=== PATIENT | male | born 1955 | race Caucasian/White ===

== ENCOUNTER 2016-12-02 10:46 | Observation (INO) | payer BC ==
[2016-12-02] VITALS (7 sets, daily range): BP systolic 146–168; BP diastolic 84–107; PULSE 82–114; RESP 16–20; TEMP 97.7–98.7; O2SAT 92–97
[~2016-12-02 10:46] MED LIST: TAMS0.4C67 PO
[2016-12-02] MEDS ORDERED: DULO1CAP PO (11:07)
[2016-12-02] MEDS ORDERED: TAMS0.4C4 PO (11:07)
[2016-12-02] MEDS ORDERED: SODIUM CHLORIDE 0.9% FLUSH 5 ML FLUSH IVF PRN (11:15)
--- NOTE | 2016-12-02 11:18 | PD ---
HPI Chief Complaint: Altered Mental Status Time Seen by Provider: 11:13 Travel History International Travel<30 days: No Contact w/Intl Traveler<30days: No History of Present Illness HPI 61 year old male presents to the emergency department with family for evaluation of progressive confusion, lightheadedness, unsteady gait since a concussion on July. Daughter is at bedside who the family consumer scientist. She states that since his concussion and July, he has had progressive decline. She states that over the 2 weeks, has worsened. On , he disappeared for 9 hours. She states that he has never done this before. She states he is following constantly. He fell this morning. The patient's family members also concerned of possible increasing alcohol intake. His daughter is concerned of hydrocephalus. The patient has a history of depression and BPH. He takes Duloxetine and tamsulosin. He reports sinus pressure, denies headache. No visual changes. Denies any neck pain or back pain. He denies chest pain or shortness breath. No abdominal pain. No vomiting. The patient does not know that today is New Day. He is aware that he is at the hospital and is aware of who the president is. The patient will not say where he went on and was confused when I ask him. He does have abrasion to the left lower leg. His tetanus immunization is up-to-date according to patient and family. [facility] Past Medical History Diminished Hearing: No Genitourinary: Yes Past Surgical History Other Surgery: Yes (EPIDURAL FOR BACK PAIN,TRIGGER FINGER SURGERY) Social History Alcohol Use: Yes Tobacco Use: No Substance Use: No Allergies-Medications (Allergen,Severity, Reaction): Coded Allergies: No Known Allergies (Unverified , 07/06/16) Reported Meds & Prescriptions Reported Meds & Active Scripts Active Reported Tamsulosin (Tamsulosin HCl) 0.4 Mg Cap 0.4 Mg PO HS Duloxetine DR (Duloxetine HCl) 20 Mg Capdr 80 Mg PO DAILY Review of Systems Except as stated in HPI: all other systems reviewed are Neg Physical Exam Narrative GENERAL: Well-developed well-nourished male patient, afebrile. Patient does have smell of alcohol on his breath. SKIN: Warm and dry. Abrasion noted to left lower leg. HEAD: Normocephalic. Atraumatic. ENT: Mucosa pink and moist. No erythema or exudates. No uvular edema. No uvular , palatal, or tonsillar deviation. Airway patent. Nasal turbinates appear normal without nasal blood, purulent drainage or septal hematoma. Bilateral tympanic membranes are clear without erythema or perforation. EYES: No scleral icterus. No injection or drainage. NECK: Supple, trachea midline. No JVD or lymphadenopathy. CARDIOVASCULAR: Regular rate and rhythm without murmurs, gallops, or rubs. RESPIRATORY: Breath sounds equal bilaterally. No accessory muscle use. Lungs sounds are clear to auscultation. GASTROINTESTINAL: Abdomen soft, non-tender, nondistended. MUSCULOSKELETAL: No cyanosis, or edema. Bilateral upper and lower extremity strength 5/5. All extremities are neurovascularly intact. BACK: Nontender without obvious deformity. No CVA tenderness. NEUROLOGICAL: Awake and alert. Cranial nerves II through XII intact. Motor and sensory grossly within normal limits. Five out of 5 muscle strength in all muscle groups. Normal speech. Finger to nose is normal bilaterally. Heel to barroso is normal bilaterally. Data Data Last Documented VS Vital Signs Date Time Temp Pulse Resp B/P Pulse Ox O2 Delivery O2 Flow Rate FiO2 12/02/16 11:25 97 Nasal Cannula 2 12/02/16 10:48 97.7 88 16 159/104 Orders Electrocardiogram (12/02/16 11:11) Alcohol (Ethanol) (12/02/16 11:11) Complete Blood Count With Diff (12/02/16 11:11) Comprehensive Metabolic Panel (12/02/16 11:11) Creatine Kinase (Cpk) (12/02/16 11:11) Drug Screen, Random Urine (12/02/16 11:11) Troponin I (12/02/16 11:11) Urinalysis - C+S If Indicated (12/02/16 11:11) Chest, Single Ap (12/02/16 11:11) Ct Brain W/O Iv Contrast(Rout) (12/02/16 11:11) Blood Glucose (12/02/16 11:11) Ecg Monitoring (12/02/16 11:11) Iv Access Insert/Monitor (12/02/16 11:11) Oximetry (12/02/16 11:11) Sodium Chloride 0.9% Flush (Ns Flush) (12/02/16 11:15) Magnesium (Mg) (12/02/16 11:18) Ammonia (12/02/16 12:20) Admit Order (Ed Use Only) (12/02/16 13:24) Labs Laboratory Tests Test 12/02/16 12/02/16 11:27 12:31 White Blood Count 5.3 TH/MM3 Red Blood Count 5.14 MIL/MM3 Hemoglobin 15.8 GM/DL Hematocrit 46.7 % Mean Corpuscular Volume 90.9 FL Mean Corpuscular Hemoglobin 30.7 PG Mean Corpuscular Hemoglobin 33.8 % Concent Red Cell Distribution Width 14.1 % Platelet Count 182 TH/MM3 Mean Platelet Volume 8.9 FL Neutrophils (%) (Auto) 65.2 % Lymphocytes (%) (Auto) 22.4 % Monocytes (%) (Auto) 10.3 % Eosinophils (%) (Auto) 1.0 % Basophils (%) (Auto) 1.1 % Neutrophils # (Auto) 3.5 TH/MM3 Lymphocytes # (Auto) 1.2 TH/MM3 Monocytes # (Auto) 0.5 TH/MM3 Eosinophils # (Auto) 0.1 TH/MM3 Basophils # (Auto) 0.1 TH/MM3 CBC Comment DIFF FINAL Differential Comment Sodium Level 142 MEQ/L Potassium Level 4.2 MEQ/L Chloride Level 106 MEQ/L Carbon Dioxide Level 27.8 MEQ/L Anion Gap 8 MEQ/L Blood Urea Nitrogen 15 MG/DL Creatinine 1.00 MG/DL Estimat Glomerular Filtration 76 ML/MIN Rate Random Glucose 118 MG/DL Calcium Level 8.0 MG/DL Magnesium Level 2.2 MG/DL Total Bilirubin 0.3 MG/DL Aspartate Amino Transf 41 U/L (AST/SGOT) Alanine Aminotransferase 40 U/L (ALT/SGPT) Alkaline Phosphatase 96 U/L Total Creatine Kinase 308 U/L Troponin I LESS THAN 0.02 NG/ML Total Protein 7.2 GM/DL Albumin 3.4 GM/DL Ethyl Alcohol Level 312 MG/DL Ammonia 35 MCMOL/L [facility] Medical Decision Making Medical Screen Exam Complete: Yes Emergency Medical Condition: Yes Medical Record Reviewed: Yes Interpretation(s) Ct brain - CONCLUSION: No acute disease. Chest x-ray - CONCLUSION: Left basilar atelectasis or airspace disease. Differential Diagnosis Intracranial abnormality versus hydrocephalus versus CVA versus TIA versus electrolyte abnormality versus alcohol intoxication versus ACS Narrative Course 61-year-old male presents to the emergency department with his family for evaluation of progressive confusion, unsteady gait since July, but worsening over the past 2 weeks. EKG is ordered and pending. CBC, CMP, CK, troponin, magnesium, ammonia, alcohol level, urine drug screen, UA are ordered and pending. Chest x-ray and CT of the brain ordered and pending. EKG shows sinus rhythm, heart rate 81, no acute ST changes. CBC shows no acute abnormalities. CMP shows slightly elevated AST of 41, no other acute abnormalities. CK is 308. Troponin is less than 0.02. Magnesium is 2.2. Alcohol level is 312. Ammonia is slightly elevated at 35. CT of the brain shows no acute disease. Chest x-ray shows left basilar atelectasis or airspace disease. [facility] is paged for admission. Dr. Krause accepted admission. Diagnosis Primary Impression: Ataxia Additional Impressions: Unstable gait Alcohol abuse Admitting Information Admitting Physician Requests: Lou Smith Dec 02, 2016 11:18
[2016-12-02 11:46] LABS: AUTOMATED NEUTROPHIL # 3.5 TH/MM3 (1.8-7.7); BASOPHIL # 0.1 TH/MM3 (0-0.2); BASOPHIL % 1.1 % (0.0-2.0); EOSINOPHIL # 0.1 TH/MM3 (0-0.4); HEMATOCRIT 46.7 % (39.0-51.0); HEMO FLAGS DIFF FINAL; LYMPH % 22.4 % (9.0-44.0); LYMPHOCYTE # 1.2 TH/MM3 (1.0-4.8); MEAN CELL VOLUME 90.9 FL (80.0-100.0); MEAN CORPUSCULAR HEMOGLOBIN 30.7 PG (27.0-34.0); MEAN CORPUSCULAR HGB CONC 33.8 % (32.0-36.0); MONO % 10.3 % (0.0-8.0); NEUT % 65.2 % (16.0-70.0); PLATELET COUNT 182 TH/MM3 (150-450); RED BLOOD COUNT 5.14 MIL/MM3 (4.50-5.90); RED CELL DISTRIBUTION WIDTH 14.1 % (11.6-17.2); WHITE BLOOD COUNT 5.3 TH/MM3 (4.0-11.0)
[2016-12-02 12:01] LABS: ANION GAP 8 MEQ/L (5-15); AST (GOT) 41 U/L (15-37); BICARBONATE 27.8 MEQ/L (21.0-32.0); BLOOD UREA NITROGEN 15 MG/DL (7-18); CHLORIDE 106 MEQ/L (98-107); GLOMERULAR FILTRATION RATE 76 ML/MIN (>89); POTASSIUM 4.2 MEQ/L (3.5-5.1); SODIUM (NA) 142 MEQ/L (136-145)
[2016-12-02 12:07] LABS: ALKALINE PHOSPHATASE 96 U/L (45-117); ALT (GPT) 40 U/L (12-78); CREATINE KINASE 308 U/L (39-308); TOTAL BILIRUBIN ADULT 0.3 MG/DL (0.2-1.0)
--- NOTE | 2016-12-02 12:11 | RADRPT ---
EXAM DATE/TIME: 12/02/2016 11:55 [facility] COMPARISON: CT BRAIN W/O CONTRAST, June 30, 2016, 23:07. INDICATIONS : Altered mental status. RADIATION DOSE: 38.93 CTDIvol (mGy) MEDICAL HISTORY : Non-responsive. SURGICAL HISTORY : Non-responsive. ENCOUNTER: Initial ACUITY: 1 day PAIN SCALE: Non-responsive LOCATION: cranial TECHNIQUE: Multiple contiguous axial images were obtained of the head. Using automated exposure control and adj ustment of the mA and/or kV according to patient size, radiation dose was kept as low as reasonably a chievable to obtain optimal diagnostic quality images. FINDINGS: CEREBRUM: Tiny lacunar infarcts in the bilateral basal ganglia again seen. POSTERIOR FOSSA: The cerebellum and brainstem are intact. The 4th ventricle is midline. The cerebellopontine angle i s unremarkable. EXTRACRANIAL: The visualized portion of the orbits is intact. SKULL: The calvaria is intact. No evidence of skull fracture. CONCLUSION: No acute disease. Oskar Bazan MD on December 02, 2016 at 12:08 Board Certified Radiologist. This report was verified electronically.
--- NOTE | 2016-12-02 12:32 | PD ---
Data Data Last Documented VS Vital Signs Date Time Temp Pulse Resp B/P Pulse Ox O2 Delivery O2 Flow Rate FiO2 12/02/16 13:28 86 18 153/90 97 Nasal Cannula 2 12/02/16 10:48 97.7 Orders Electrocardiogram (12/02/16 11:11) Alcohol (Ethanol) (12/02/16 11:11) Complete Blood Count With Diff (12/02/16 11:11) Comprehensive Metabolic Panel (12/02/16 11:11) Creatine Kinase (Cpk) (12/02/16 11:11) Drug Screen, Random Urine (12/02/16 11:11) Troponin I (12/02/16 11:11) Urinalysis - C+S If Indicated (12/02/16 11:11) Chest, Single Ap (12/02/16 11:11) Ct Brain W/O Iv Contrast(Rout) (12/02/16 11:11) Blood Glucose (12/02/16 11:11) Ecg Monitoring (12/02/16 11:11) Iv Access Insert/Monitor (12/02/16 11:11) Oximetry (12/02/16 11:11) Sodium Chloride 0.9% Flush (Ns Flush) (12/02/16 11:15) Magnesium (Mg) (12/02/16 11:18) Ammonia (12/02/16 12:20) Admit Order (Ed Use Only) (12/02/16 13:24) Labs Laboratory Tests Test 12/02/16 12/02/16 11:27 12:31 White Blood Count 5.3 TH/MM3 Red Blood Count 5.14 MIL/MM3 Hemoglobin 15.8 GM/DL Hematocrit 46.7 % Mean Corpuscular Volume 90.9 FL Mean Corpuscular Hemoglobin 30.7 PG Mean Corpuscular Hemoglobin 33.8 % Concent Red Cell Distribution Width 14.1 % Platelet Count 182 TH/MM3 Mean Platelet Volume 8.9 FL Neutrophils (%) (Auto) 65.2 % Lymphocytes (%) (Auto) 22.4 % Monocytes (%) (Auto) 10.3 % Eosinophils (%) (Auto) 1.0 % Basophils (%) (Auto) 1.1 % Neutrophils # (Auto) 3.5 TH/MM3 Lymphocytes # (Auto) 1.2 TH/MM3 Monocytes # (Auto) 0.5 TH/MM3 Eosinophils # (Auto) 0.1 TH/MM3 Basophils # (Auto) 0.1 TH/MM3 CBC Comment DIFF FINAL Differential Comment Sodium Level 142 MEQ/L Potassium Level 4.2 MEQ/L Chloride Level 106 MEQ/L Carbon Dioxide Level 27.8 MEQ/L Anion Gap 8 MEQ/L Blood Urea Nitrogen 15 MG/DL Creatinine 1.00 MG/DL Estimat Glomerular Filtration 76 ML/MIN Rate Random Glucose 118 MG/DL Calcium Level 8.0 MG/DL Magnesium Level 2.2 MG/DL Total Bilirubin 0.3 MG/DL Aspartate Amino Transf 41 U/L (AST/SGOT) Alanine Aminotransferase 40 U/L (ALT/SGPT) Alkaline Phosphatase 96 U/L Total Creatine Kinase 308 U/L Troponin I LESS THAN 0.02 NG/ML Total Protein 7.2 GM/DL Albumin 3.4 GM/DL Ethyl Alcohol Level 312 MG/DL Ammonia 35 MCMOL/L MDM Supervised Visit with CARMEN: Yes Narrative Course I, Dr. Troncoso, have reviewed the advance practice practioner's documentation and am in agreement, met with the patient face to face, made the diagnosis, and the medical decision making was done by me. *My assessment and Findings: 61-year-old male here with complaint of altered mental status. Majority of history is provided per family. Family states that patient sustained a concussion in July and ever since he has had a very significant decline. For the last 2 months this has been much more rapid. They no cognitive changes, confusion, garbled speech. He has had difficulty ambulating and has had multiple falls. Urinary incontinence. Family noted a history of depression and BPH. On my evaluation patient is sleeping but awakens easily with voice. Patient smells noxiously of alcohol. He admits to drinking beer, but is very evasive when asked how much. Family states there is a significant family history of alcoholism but patient himself is not known to be an alcoholic. His neurologic examination is nonfocal but he certainly is ataxic and does have difficulty ambulating. Differential includes alcoholism, alcoholic ataxia, peripheral neuropathy, subdural hematoma, ICH, electrolyte abnormality, hyponatremia, hyperammonemia. Patient's daughter is a family practice sales management intern and is very concerned for normal pressure hydrocephalus. Though this is certainly on the differential I strongly feel that his symptoms are likely related to his alcoholism. Twelve-lead EKG shows sinus rhythm without notable ST abnormalities and normal intervals. CT of the brain was negative. Laboratory workup notable for blood alcohol level 312. Patient is unsteady to ambulate and by history for family this is been the case at home. I do not feel that home is a appropriate discharge at this time and patient will be admitted for physical therapy, sobriety and neurology consults if deemed necessary. Olivia Troncoso MD Dec 02, 2016 12:31
--- NOTE | 2016-12-02 12:42 | RADRPT ---
EXAM DATE/TIME: 12/02/2016 12:11 [facility] COMPARISON: No previous studies available for comparison. INDICATIONS : Syncopal Episode MEDICAL HISTORY : None. SURGICAL HISTORY : None. ENCOUNTER: Initial ACUITY: 1 day PAIN SCORE: Non-responsive. LOCATION: Bilateral chest FINDINGS: Left lower lobe air space disease or atelectasis. Cardiomegaly. Osseous structures are intact. CONCLUSION: Left basilar atelectasis or airspace disease. Oskar Bazan MD on December 02, 2016 at 12:41 Board Certified Radiologist. This report was verified electronically.
[2016-12-02] MEDS ORDERED: ONDANSETRON HCL 4 MG/2 ML VIAL IVP PRN (13:30)
[2016-12-02] MEDS ORDERED: SODIUM CHLORIDE 0.9% FLUSH 5 ML FLUSH FLUSH PRN (13:30)
[2016-12-02] MEDS ORDERED: MAGNESIUM HYDROXIDE SUSP 30 ML CUP PO PRN (13:30)
[2016-12-02] MEDS ORDERED: BISACODYL 10 MG SUPP PR PRN (13:30)
[2016-12-02] MEDS ORDERED: NALOXONE HCL 0.4 MG/ML AMP IV PRN (13:30)
--- NOTE | 2016-12-02 13:31 | HHI.HP ---
[facility] No Primary Care Physician Admission Diagnosis alcohol ataxia, unstable gait, alcohol abuse Diagnoses: Travel History International Travel<30 Days: No Contact w/Intl Traveler <30 Da: No Past Family Social History Allergies: Coded Allergies: No Known Allergies (Unverified , 07/06/16) Physical Exam Vital Signs Vital Signs Date Time Temp Pulse Resp B/P Pulse Ox O2 Delivery O2 Flow Rate FiO2 12/02/16 13:28 86 18 153/90 97 Nasal Cannula 2 12/02/16 11:25 97 Nasal Cannula 2 12/02/16 10:48 97.7 88 16 159/104 92 Room Air Physical Exam GENERAL: This is a well-nourished, well-developed patient, in no apparent distress. SKIN: No rashes, ecchymoses or lesions. Cool and dry. HEAD: Atraumatic. Normocephalic. No temporal or scalp tenderness. EYES: Pupils equal round and reactive. Extraocular motions intact. No scleral icterus. No injection or drainage. ENT: Nose without bleeding, purulent drainage or septal hematoma. Throat without erythema, tonsillar hypertrophy or exudate. Uvula midline. Airway patent. NECK: Trachea midline. No JVD or lymphadenopathy. Supple, nontender, no meningeal signs. CARDIOVASCULAR: Regular rate and rhythm without murmurs, gallops, or rubs. RESPIRATORY: Clear to auscultation. Breath sounds equal bilaterally. No wheezes , rales, or rhonchi. GASTROINTESTINAL: Abdomen soft, non-tender, nondistended. No hepato-splenomegaly , or palpable masses. No guarding. MUSCULOSKELETAL: Extremities without clubbing, cyanosis, or edema. No joint tenderness, effusion, or edema noted. No calf tenderness. Negative Homans sign bilaterally. NEUROLOGICAL: Awake and alert. Cranial nerves II through XII intact. Motor and sensory grossly within normal limits. Five out of 5 muscle strength in all muscle groups. Normal speech. Laboratory Laboratory Tests Test 12/02/16 12/02/16 11:27 12:31 White Blood Count 5.3 Red Blood Count 5.14 Hemoglobin 15.8 Hematocrit 46.7 Mean Corpuscular Volume 90.9 Mean Corpuscular Hemoglobin 30.7 Mean Corpuscular Hemoglobin 33.8 Concent Red Cell Distribution Width 14.1 Platelet Count 182 Mean Platelet Volume 8.9 Neutrophils (%) (Auto) 65.2 Lymphocytes (%) (Auto) 22.4 Monocytes (%) (Auto) 10.3 Eosinophils (%) (Auto) 1.0 Basophils (%) (Auto) 1.1 Neutrophils # (Auto) 3.5 Lymphocytes # (Auto) 1.2 Monocytes # (Auto) 0.5 Eosinophils # (Auto) 0.1 Basophils # (Auto) 0.1 CBC Comment DIFF FINAL Differential Comment Sodium Level 142 Potassium Level 4.2 Chloride Level 106 Carbon Dioxide Level 27.8 Anion Gap 8 Blood Urea Nitrogen 15 Creatinine 1.00 Estimat Glomerular Filtration 76 Rate Random Glucose 118 Calcium Level 8.0 Magnesium Level 2.2 Total Bilirubin 0.3 Aspartate Amino Transf 41 (AST/SGOT) Alanine Aminotransferase 40 (ALT/SGPT) Alkaline Phosphatase 96 Total Creatine Kinase 308 Troponin I LESS THAN 0.02 Total Protein 7.2 Albumin 3.4 Ethyl Alcohol Level 312 Ammonia 35 Result Diagram: 12/02/16 1127 12/02/16 1127 Chris Krause DO Dec 02, 2016 13:31
[2016-12-02] MEDS ORDERED: FOLIC ACID 1 MG TAB PO SCH (14:00)
[2016-12-02] MEDS: THIAMINE INJ 100 MG in SODIUM CHLORIDE 0.9% INJ 100 ML IV SCH (14:18)
[2016-12-02] MEDS: HEPARIN SODIUM - SQ 10,000 UNITS/ML VIAL SQ SCH (14:23)
[2016-12-02] MEDS: SODIUM CHLOR 0.9% 1000 ML INJ 1,000 ML IV SCH (14:26)
[2016-12-02] MEDS ORDERED: LORazepam 2 MG TAB PO PRN (16:00)
[2016-12-02] MEDS ORDERED: LORazepam 2 MG/ML VIAL IV PUSH PRN ×4 (16:00)
[2016-12-02] MEDS ORDERED: FLUMAZENIL 1 MG/10 ML VIAL IV PUSH PRN (16:00)
[2016-12-02] MEDS ORDERED: SODIUM CHLORIDE 0.9% FLUSH 5 ML FLUSH IV FLUSH PRN (16:00)
[2016-12-02] MEDS ORDERED: LACTULOSE SYRUP 20 GM/30 ML CUP PO SCH (16:15)
--- NOTE | 2016-12-02 16:46 | HHI.HP ---
[facility] No Primary Care Physician Admission Diagnosis alcohol ataxia, unstable gait, alcohol abuse Diagnoses: Chief Complaint: Progressive confusion and frequent falls Travel History International Travel<30 Days: No Contact w/Intl Traveler <30 Da: No History of Present Illness Mr. Espino is a 61 year old male with a history of BPH, depression, alcoholism who presented to the ED on 12/02/2016 due to worsening confusion, lightheadedness, unsteady gait. Patient's daughter, a family preservation caseworker from [place], [place] who provides much of the history. Patient suffered a concussion in July 2016 since then it seems the patient has had a progressive decline in cognitive ability and gait. Over the past 2 weeks patient has had increased dizziness lightheadedness forgetfulness bedwetting and difficulty walking as patient has had several falls. It appears patient is going through increased stress in his life and has increased his EtOH intake reports 8 alcohol drinks per day. In fact on November 24 2016 patient drove to [place] and back and was missing for approximately 14 hours. Patient does not recall why he drove to [place]. The patient presented to the emergency department his EtOH level was 314, AST is elevated at 41 and ammonia level of 35. The patient is alert to person and place only. Speech is noted to be slow and tangental. Patient denies any chest pain, shortness of breath, fever, chills. Denies any changes in bowel habits. Patient's daughter is concerned about hydrocephalus as well his ongoing alcohol abuse. Review of Systems ROS Limitations: Other (Negative except as noted in the HPI. ) Other Other systems reviewed and negative except as mentioned in history of present illness Past Family Social History Past Medical History Depression, BPH Past Surgical History Left trigger finger release Reported Medications Tamsulosin (Tamsulosin HCl) 0.4 Mg Cap 0.4 Mg PO HS Duloxetine DR (Duloxetine HCl) 20 Mg Capdr 80 Mg PO DAILY Allergies: Coded Allergies: No Known Allergies (Unverified , 07/06/16) Active Ordered Medications Current Medications Medications (Trade) Dose Ordered Sig/Jossue Route Start Time Stop Time Status Last Admin (NS 1000 ml Inj) 1,000 ml @ 100 mls/hr Q10H IV 12/02/16 14:00 12/02/16 14:26 (Tylenol) 650 mg Q4H PRN PO 12/02/16 13:30 (Zofran Inj) 4 mg Q6H PRN IVP 12/02/16 13:30 (Dulcolax Supp) [address] 12/02/16 13:30 (Milk Of Magnesia Liq) 30 ml Q12H PRN PO 12/02/16 13:30 (Heparin Inj) 5,000 units Q12H SQ 12/02/16 14:00 12/02/16 14:23 Naloxone HCl 0.4 mg 0.4 mg UNSCH PRN IV 12/02/16 13:30 (Thiamine Inj/NS Inj) 101 ml @ 101 mls/hr DAILY IV 12/02/16 15:00 12/05/16 14:59 12/02/16 14:18 (NS Flush) 2 ml UNSCH PRN IV FLUSH 12/02/16 16:00 (NS Flush) 2 ml BID IV FLUSH 12/02/16 21:00 (Vitamin B1) 100 mg DAILY PO 12/03/16 09:00 (Ativan) 1 mg Q4H PRN PO 12/02/16 16:00 (Ativan Inj) 1 mg Q4H PRN IV PUSH 12/02/16 16:00 (Ativan) 2 mg Q2H PRN PO 12/02/16 16:00 (Ativan Inj) 2 mg Q2H PRN IV PUSH 12/02/16 16:00 (Ativan Inj) 2 mg Q1H PRN IV PUSH 12/02/16 16:00 (Ativan Inj) 2 mg Q15M PRN IV PUSH 12/02/16 16:00 (Folate) 1 mg DAILY PO 12/03/16 09:00 (Cymbalta Dr) 80 mg DAILY PO 12/03/16 09:00 (Flomax) 0.4 mg HS PO 12/02/16 21:00 (Lactulose Liq) 30 ml DAILY PO 12/02/16 16:15 (Pepcid) 20 mg BID PO 12/02/16 21:00 Family History Father had colon cancer and suffered from EtOH abuse, patient also reports hypertension runs in the family Social History Patient denies tobacco use or illicit drug use Admits to drinking approximately 8 beers per day last drink was yesterday evening Physical Exam Vital Signs Vital Signs Date Time Temp Pulse Resp B/P Pulse Ox O2 Delivery O2 Flow Rate FiO2 12/02/16 14:47 98.1 82 20 161/96 97 12/02/16 13:28 86 18 153/90 97 Nasal Cannula 2 12/02/16 11:25 97 Nasal Cannula 2 12/02/16 10:48 97.7 88 16 159/104 92 Room Air Physical Exam GENERAL: This is a well-nourished, well-developed patient, in no apparent distress. SKIN: No rashes, ecchymoses or lesions. Cool and dry. HEAD: Atraumatic. Normocephalic. No temporal or scalp tenderness. EYES: Pupils equal round and reactive. Extraocular motions intact. No scleral icterus. No injection or drainage. ENT: Nose without bleeding, purulent drainage or septal hematoma. Throat without erythema, tonsillar hypertrophy or exudate. Uvula midline. Airway patent. NECK: Trachea midline. No JVD or lymphadenopathy. Supple, nontender, no meningeal signs. CARDIOVASCULAR: Regular rate and rhythm without murmurs, gallops, or rubs. RESPIRATORY: Clear to auscultation. Breath sounds equal bilaterally. No wheezes , rales, or rhonchi. GASTROINTESTINAL: Abdomen soft, non-tender, nondistended. No hepato-splenomegaly , or palpable masses. No guarding. MUSCULOSKELETAL: Extremities without clubbing, cyanosis, or edema. No joint tenderness, effusion, or edema noted. No calf tenderness. Negative Homans sign bilaterally. NEUROLOGICAL: Awake and alert. Cranial nerves II through XII intact. Motor and sensory grossly within normal limits. Five out of 5 muscle strength in all muscle groups. Normal speech. Laboratory Laboratory Tests Test 12/02/16 12/02/16 11:27 12:31 White Blood Count 5.3 Red Blood Count 5.14 Hemoglobin 15.8 Hematocrit 46.7 Mean Corpuscular Volume 90.9 Mean Corpuscular Hemoglobin 30.7 Mean Corpuscular Hemoglobin 33.8 Concent Red Cell Distribution Width 14.1 Platelet Count 182 Mean Platelet Volume 8.9 Neutrophils (%) (Auto) 65.2 Lymphocytes (%) (Auto) 22.4 Monocytes (%) (Auto) 10.3 Eosinophils (%) (Auto) 1.0 Basophils (%) (Auto) 1.1 Neutrophils # (Auto) 3.5 Lymphocytes # (Auto) 1.2 Monocytes # (Auto) 0.5 Eosinophils # (Auto) 0.1 Basophils # (Auto) 0.1 CBC Comment DIFF FINAL Differential Comment Sodium Level 142 Potassium Level 4.2 Chloride Level 106 Carbon Dioxide Level 27.8 Anion Gap 8 Blood Urea Nitrogen 15 Creatinine 1.00 Estimat Glomerular Filtration 76 Rate Random Glucose 118 Calcium Level 8.0 Magnesium Level 2.2 Total Bilirubin 0.3 Aspartate Amino Transf 41 (AST/SGOT) Alanine Aminotransferase 40 (ALT/SGPT) Alkaline Phosphatase 96 Total Creatine Kinase 308 Troponin I LESS THAN 0.02 Total Protein 7.2 Albumin 3.4 Ethyl Alcohol Level 312 Ammonia 35 Result Diagram: 12/02/16 1127 12/02/16 1127 Imaging Last Impressions Head CT 12/02/16 1111 Signed Impressions: Service Date/Time: Friday, December 02, 2016 11:55 - CONCLUSION: No acute disease. Oskar Bazan MD Chest X-Ray 12/02/16 1111 Signed Impressions: Service Date/Time: Friday, December 02, 2016 12:11 - CONCLUSION: Left basilar atelectasis or airspace disease. Oskar Bazan MD Assessment and Plan Assessment and Plan Mr. Espino 61-year-old male with past medical history which includes depression currently on Cymbalta and BPH. Patient suffered a concussion in July 2016 since then it seems the patient has had a progressive decline in cognitive ability and gait. Over the past 2 weeks patient has had increased dizziness lightheadedness forgetfulness bedwetting and difficulty walking as patient has had several falls. - Acute on Chronic encephalopathy Progressive confusion status post concussion 07/26/2016 Concern for hydrocephalus- ataxia, confusion, bedwetting Neuro checks Ammonia level noted to be 35 CT head reviewed by myself as well as Dr. Krause- no acute findings MRI ordered and pending Consult neurology Frequent falls - physical therapy EtOH abuse patient counseled on risk of EtOH abuse encouraged to abstain Seizure precautions [facility] protocol Folic acid, Thiamine Check Vitamin B12 level. Left basilar atelectasis Chest x-ray reviewed by myself as well as Dr. Krause reveals left basilar atelectasis or airspace disease. patient is afebrile white blood cell count 5.3 Incentive spirometry every hour while awake continue to monitor for signs of progression/infection BPH - continue Tamsulosin. Depression continue Cymbalta DVT prophylaxis with SCDs Discussed with patient and his daughter who is present at bedside also discussed with RN and ER provider Written by Ruth Pinzon, acting as scribe for Dr. Krause on 12/02/16 at 17: 23. The documentation accurately reflects the work performed [id number] by me, Aram Krause D.O on 12/02/16 at 17:23. Ruth Pinzon Dec 02, 2016 16:46 Chris Krause DO Dec 02, 2016 22:41
[2016-12-02 18:31] LABS: BLOOD, URINE NEG (NEG); COMMENT (UR) CULT NOT INDICATED; CULTURE IF INDICATED CULT NOT INDICATED; GLUCOSE,URINE NEG (NEG); KETONE, URINE NEG (NEG); MUCUS URINE FEW /lpf (OCC); NITRITE,URINE NEG (NEG); URINE COLOR YELLOW (YELLW/STRAW)
[2016-12-02 18:38] LABS: AMPHETAMINE, URINE NEG (NEG); BARBITURATES, URINE NEG (NEG); COCAINE, URINE NEG (NEG)
[2016-12-02] MEDS: ACETAMINOPHEN 325 MG TAB PO PRN (19:27)
[2016-12-02] MEDS: SODIUM CHLORIDE 0.9% FLUSH 5 ML FLUSH IV FLUSH SCH (20:29)
[2016-12-02] MEDS: TAMSULOSIN HCL 0.4 MG CAP PO SCH (20:30)
[2016-12-02] MEDS: FAMOTIDINE 20 MG TAB PO SCH (20:30)
[2016-12-02] MEDS ORDERED: RANITIDINE HCL 150 MG TAB PO SCH (21:00)
[2016-12-02] MEDS ORDERED: SODIUM CHLORIDE 0.9% FLUSH 5 ML FLUSH FLUSH SCH (21:00)
[2016-12-03] VITALS (8 sets, daily range): BP systolic 166–197; BP diastolic 96–116; PULSE 97–113; RESP 16–20; TEMP 96.4–98.9; O2SAT 8–98
[2016-12-03] MEDS: LORazepam 1 MG TAB PO PRN ×2 (00:05→04:04)
[2016-12-03] MEDS: SODIUM CHLOR 0.9% 1000 ML INJ 1,000 ML IV SCH ×3 (00:05→20:53)
[2016-12-03] MEDS: HEPARIN SODIUM - SQ 10,000 UNITS/ML VIAL SQ SCH ×2 (02:07→14:56)
[2016-12-03] MEDS ORDERED: cloNIDine HCL 0.1 MG TAB PO ONE (04:00)
[2016-12-03 04:36] LABS: AUTOMATED NEUTROPHIL # 2.8 TH/MM3 (1.8-7.7); BASOPHIL % 0.5 % (0.0-2.0); EOSINOPHIL # 0.1 TH/MM3 (0-0.4); EOSINOPHIL % 1.6 % (0.0-4.0); HEMATOCRIT 43.4 % (39.0-51.0); HEMO FLAGS DIFF FINAL; LYMPH % 25.3 % (9.0-44.0); LYMPHOCYTE # 1.2 TH/MM3 (1.0-4.8); MEAN CELL VOLUME 90.3 FL (80.0-100.0); MEAN CORPUSCULAR HGB CONC 34.3 % (32.0-36.0); MONO % 12.7 % (0.0-8.0); NEUT % 59.9 % (16.0-70.0); PLATELET COUNT 165 TH/MM3 (150-450); RED BLOOD COUNT 4.81 MIL/MM3 (4.50-5.90); RED CELL DISTRIBUTION WIDTH 13.6 % (11.6-17.2); WHITE BLOOD COUNT 4.8 TH/MM3 (4.0-11.0)
[2016-12-03 05:06] LABS: BICARBONATE 28.2 MEQ/L (21.0-32.0); POTASSIUM 3.7 MEQ/L (3.5-5.1)
[2016-12-03] MEDS ORDERED: ENALAPRILAT 1.25 MG/ML VIAL IV PRN (08:00)
[2016-12-03] MEDS ORDERED: cloNIDine HCL 0.1 MG TAB PO PRN (08:00)
--- NOTE | 2016-12-03 08:46 | HHI.PR ---
Subjective Remarks Follow-up for alcoholism, gait instability. Patient is currently doing well. No acute events overnight. Daughter at bedside. Patient denies any chest pain , shortness of breath, fever or chills. His blood pressure is elevated this morning. Objective Vitals Vital Signs Date Time Temp Pulse Resp B/P Pulse Ox O2 Delivery O2 Flow Rate FiO2 12/03/16 07:24 95 Nasal Cannula 1.00 12/03/16 07:09 97.6 111 18 197/111 95 12/03/16 04:59 110 166/102 95 12/03/16 03:43 97.8 113 16 177/116 98 12/02/16 23:48 98.7 110 16 168/107 96 12/02/16 20:40 93 Nasal Cannula 2.00 12/02/16 19:10 98.3 114 16 146/84 94 12/02/16 14:47 98.1 82 20 161/96 97 12/02/16 13:28 86 18 153/90 97 Nasal Cannula 2 12/02/16 11:25 97 Nasal Cannula 2 12/02/16 10:48 97.7 88 16 159/104 92 Room Air I/O 12/02/16 12/02/16 12/02/16 12/03/16 12/03/16 12/03/16 07:00 15:00 23:00 07:00 15:00 23:00 Intake Total 240 ml 980 ml Balance 240 ml 980 ml Intake Oral 240 ml IV Total 980 ml Result Diagram: 12/03/16 0402 12/03/16 0402 Imaging Last Impressions Head CT 12/02/16 1111 Signed Impressions: Service Date/Time: Friday, December 02, 2016 11:55 - CONCLUSION: No acute disease. Oskar Bazan MD Chest X-Ray 12/02/16 1111 Signed Impressions: Service Date/Time: Friday, December 02, 2016 12:11 - CONCLUSION: Left basilar atelectasis or airspace disease. Oskar Bazan MD Objective Remarks GENERAL: Alert, oriented 3 SKIN: Warm and dry. HEAD: Normocephalic. EYES: No scleral icterus. No injection or drainage. NECK: Supple, trachea midline. No JVD or lymphadenopathy. CARDIOVASCULAR: Regular rate and rhythm without murmurs, gallops, or rubs. RESPIRATORY: Breath sounds equal bilaterally. No accessory muscle use. GASTROINTESTINAL: Abdomen soft, non-tender, nondistended. MUSCULOSKELETAL: No cyanosis, or edema. BACK: Nontender without obvious deformity. No CVA tenderness. Procedures None A/P Assessment and Plan Mr. Espino 61-year-old male with past medical history which includes depression currently on Cymbalta and BPH. Patient suffered a concussion in July 2016 since then it seems the patient has had a progressive decline in cognitive ability and gait. Over the past 2 weeks patient has had increased dizziness lightheadedness forgetfulness bedwetting and difficulty walking as patient has had several falls. - Acute on Chronic encephalopathy Progressive confusion status post concussion 07/26/2016 Concern for hydrocephalus - ataxia, confusion, bedwetting Neuro checks Ammonia level noted to be 35 CT head --> no acute findings MRI ordered and pending this morning. Dr. Katz (Neurology) evaluated patient and recommended alcohol rehab as well as a psychiatry consult. - Hypertension - Will provide PRN medications - clonidine and Vasotec. Will monitor. Frequent falls - probably related to alcohol abuse. PT consult pending. EtOH abuse patient counseled on risk of EtOH abuse encouraged to abstain Seizure precautions [facility] protocol Folic acid, Thiamine Vitamin B12 level pending. Left basilar atelectasis Chest x-ray reviewed by myself as well as Dr. Krause on 12/02/2016 reveals left basilar atelectasis or airspace disease. patient is afebrile white blood cell count 5.3 Incentive spirometry every hour while awake continue to monitor for signs of progression/infection BPH - continue Tamsulosin. Depression/Anxiety - will consult Psychiatry for input with regards to medications and other recommendations. Full code. DVT prophylaxis with SCDs Discharge: Potential discharge this afternoon after MRI brain and after psychiatry consult. Chris Krause DO Dec 03, 2016 8:46 am
[2016-12-03] MEDS ORDERED: GADODIAMIDE PF 287 MG/ML 20 ML VIAL (for RAD MRI) IV ONE (08:57)
[2016-12-03] MEDS: THIAMINE HCL 100 MG TAB PO SCH (09:00)
[2016-12-03] MEDS ORDERED: LACTULOSE SYRUP 20 GM/30 ML CUP PO SCH (09:00)
[2016-12-03] MEDS: SODIUM CHLORIDE 0.9% FLUSH 5 ML FLUSH IV FLUSH SCH ×2 (09:00→20:52)
--- NOTE | 2016-12-03 09:37 | RADRPT ---
EXAM DATE/TIME: 12/03/2016 08:40 [place] COMPARISON: CT BRAIN W/O CONTRAST, December 02, 2016, 11:55. INDICATIONS : Confusion. Hydrocephalus. CONTRAST: 17 cc Omniscan (gadodiamide) IV MEDICAL HISTORY : None. SURGICAL HISTORY : Finger surgery. ENCOUNTER: Subsequent ACUITY: 2 day PAIN SCORE: 0/10 LOCATION: cranial TECHNIQUE: Multiplanar, multisequence MRI of the brain was performed both prior to and following the administrat ion of paramagnetic contrast. FINDINGS: Ventricles and cisterns are of normal size and configuration. No evidence of acute infarct on diffusi on weighted images. 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 No hemorrhage or mass. No a bnormal enhancement. No CONCLUSION: No acute disease. Oskar Bazan MD on December 03, 2016 at 9:34 Board Certified Radiologist. This report was verified electronically.
--- NOTE | 2016-12-03 09:50 | MB ---
cc: OBDULIA CASILLAS DATE OF CONSULTATION: 12/03/2016 HISTORY OF PRESENT ILLNESS A 61-year-old left-handed man who really has been very healthy. He has a history of anxiety. He has been treating that for a while. In the past he was on Zoloft which made him more anxious. He has been on Cymbalta but he got some perspiration with that. Recently Klonopin p.r.n. and Inderal along with Cymbalta. He has been drinking rather heavily as far as we can tell, some empty bottles were found in his garage. He admits to 5 beers a day. He has some family troubles with his sister. He had a concussion in July when he was lifting weights. A barbell came down and hit him in the forehead. He says he remembers that. He had some confusion after that. He was found on the floor and brought in here. His daughter is a family practice resident from [place]. On November he drove to [place] and back, was missing for 14 hours, not sure why he went there. PAST MEDICAL HISTORY 1. Depression. 2. Anxiety. 3. Alcoholism. 4. Urinary incontinence. 5. Unsteady gait. MEDICATIONS 1. Cymbalta. 2. Klonopin. 3. Inderal. 4. Tamsulosin. ALLERGIES No known drug allergies. REVIEW OF SYSTEMS He denies any history of hypertension, diabetes, hypercholesterolemia, [place], problems with his heart, renal, hepatic or pulmonary disease, thyroid disease, lupus, ulcer, cancer, seizure or stroke. SOCIAL HISTORY He is not a smoker. He is a drinker. Lives with his . FAMILY HISTORY Positive for cancer in his parents. Negative for seizure or stroke. His mother was an alcoholic evidently. His sister is also a heavy drinker. PHYSICAL EXAMINATION VITAL SIGNS: Afebrile. 197/111 to 146/84. NECK: There were no carotid bruits. HEART: Regular rhythm. I do not detect a murmur. NEUROLOGIC: Pupils are equal. Visual nicole are full. Extraocular movements are intact without nystagmus. Face is symmetric with normal sensation. Tongue was midline. There is no drift. He had normal strength in upper and lower extremities bilaterally. DTRs are hyperreflexic throughout at 3+. There is no ankle clonus. Toes are downgoing bilaterally. Pinprick and vibratory sense intact throughout. He is not ataxic on [id number] or [id number]. Gait was steady with negative Romberg. He is not a great tandem, however, a little bit unsteady there. He is awake and alert. He knew the month, the year, the day of the week. Repetition was normal as was naming and calculations. He remembered two out of three words at 2 minutes and three out of three words at 10 minutes. There is a slight intention tremor. LABORATORY DATA Urine drug screen was negative. Alcohol level 312. UA was negative. Basic metabolic profile was normal. Ammonia 35. LFTs normal. Troponin normal. Albumin normal. B12 pending. CBC normal. CPK was normal. IMAGING DATA CAT scan of the brain is normal. No evidence of hydrocephalous. Chest x-ray: Left basal atelectasis. IMPRESSION AND RECOMMENDATIONS I think primarily this is due to the alcohol. He has significant anxiety and I would recommend having psychiatry see him. The Cymbalta does not seem to be working well for him and he says that Zoloft did not work well in the past. He could get a low dose of Librium to help him get off the alcohol. Will check a standing blood pressure, MRI of the brain, EEG, some additional blood work, but overall I thought he looked well neurologically. If his MRI of the brain is negative, his EEG is done and his blood pressure standing is okay, he can be cleared neuro-ritter to be discharged. Otherwise, another option would be to go to detox. I do not think he has any evidence for normal pressure hydrocephalous. His ventricle sizes are normal and I think this is all likely related to the alcohol intake. I would leave him on the beta leland for now to get his blood pressure under control. MD ALEKSANDER Khoury/JANAK /8:23 AM 9:32 AM
[2016-12-03] MEDS: THIAMINE INJ 100 MG in SODIUM CHLORIDE 0.9% INJ 100 ML IV SCH (11:52)
[2016-12-03] MEDS: DULoxetine HCl DR 20 MG CAP PO SCH (12:12)
[2016-12-03 12:30] LABS: FREE T4 1.06 NG/DL (0.76-1.46)
[2016-12-03] MEDS: FAMOTIDINE 20 MG TAB PO SCH ×2 (12:46→20:52)
[2016-12-03] MEDS: FOLIC ACID 1 MG TAB PO SCH (12:47)
--- NOTE | 2016-12-03 16:37 | PD.CONS ---
Provisional Diagnosis Admission Date Dec 02, 2016 at 13:26 Keo I. Alcohol use disorder, unspecified anxiety History of Present Illness Service Psychiatry Consult Requested By Primary Care Physician No Primary Care Physician HPI The patient is a 61 year old man, domicile with his in [place], employed, with a psychiatric history of depression and anxiety, alcohol use disorder, no previous psychiatric hospitalizations, no previous suicidal attempts, with a history of medical history of BPH, who presented to the ED on due to worsening confusion, lightheadedness, unsteady gait in the context of acute alcohol intoxication. As per ER physician note: "Patient's daughter, a family consumer scientist from [place], [place] who provides much of the history. Patient suffered a concussion in July 2016 since then it seems the patient has had a progressive decline in cognitive ability and gait. Over the past 2 weeks patient has had increased dizziness lightheadedness forgetfulness bedwetting and difficulty walking as patient has had several falls. It appears patient is going through increased stress in his life and has increased his EtOH intake reports 8 alcohol drinks per day. In fact on November 24 2016 patient [address] to [place] and back and was missing for approximately 14 hours. Patient does not recall why he drove to [place]. The patient presented to the emergency department his EtOH level was 314, AST is elevated at 41 and ammonia level of 35. At the beginning he was confused, delirious, but later on regained consciousness. Patient was consulted to psychiatry for recommendation adjustment in medication regimen. On psychiatric evaluation patient was calm and cooperative, he described his mood as fantastic, he denies depressive symptoms, he says that his problem is his sustained use of alcohol. Patient says that he drinks About 5-8 beers per day. He denies the use of illicit drugs. Patient denies suicidal and homicidal ideation. He reports daily anxiety, has been under control with her current psychotropic regimen, Cymbalta 60 mg and clonazepam 0.5 mg when necessary acute anxiety. At the moment of this evaluation the patient is fully oriented 3, conversant, logical, coherent , no paranoia, delusions, aggressive behavior or agitation observed. No gross cognitive impairment, delirium, confusion are observed. Review of Systems Constitutional: DENIES: Diaphoretic episodes, Fatigue, Fever, Weight gain, Weight loss, Chills, Dizziness, Change in appetite, Night Sweats Endocrine: DENIES: Heat/cold intolerance, Polydipsia, Polyuria, Polyphagia Eyes: DENIES: Blurred vision, Diplopia, Eye inflammation, Eye pain, Vision loss , Photosensitivity, Double Vision Ears, nose, mouth, throat: DENIES: Tinnitus, Hearing loss, Vertigo, Nasal discharge, Oral lesions, Throat pain, Hoarseness, Ear Pain, Running Nose, Epistaxis, Sinus Pain, Toothache, Odynophagia Respiratory: DENIES: Apneas, Cough, Snoring, Wheezing, Hemoptysis, Sputum production, Shortness of breath Cardiovascular: DENIES: Chest pain, Palpitations, Syncope, Dyspnea on Exertion , PND, Lower Extremity Edema, Orthopnea, Claudication Gastrointestinal: DENIES: Abdominal pain, Black stools, Bloody stools, Constipation, Diarrhea, Nausea, Vomiting, Difficulty Swallowing, Anorexia Genitourinary: DENIES: Sexual dysfunction, Urinary frequency, Urinary incontinence, Urgency, Hematuria, Dysuria, Nocturia, Penile Discharge, Testicular Pain, Testicular Swelling Musculoskeletal: DENIES: Joint pain, Muscle aches, Stiffness, Joint Swelling, Back pain, Neck pain Integumentary: DENIES: Abnormal pigmentation, Nail changes, Pruritus, Rash Hematologic/lymphatic: DENIES: Bruising, Lymphadenopathy Immunologic/allergic: DENIES: Eczema, Urticaria Neurologic: DENIES: Abnormal gait, Headache, Localized weakness, Paresthesias, Seizures, Speech Problems, Tremor, Poor Balance Psychiatric: DENIES: Anxiety, Confusion, Mood changes, Depression, Hallucinations, Agitation, Suicidal Ideation, Homicidal Ideation, Delusions Past Family Social History Coded Allergies: Wellbutrin (Verified Allergy, Mild, Rash, 12/03/16) Reported Medications Tamsulosin 0.4 Mg Cap0.4 Mg PO HS #30 CAP Ref 0 12/02/[address] 20 Mg Capdr80 Mg PO DAILY #30 CAP Ref 0 12/02/16 Discontinued Reported Medications Tamsulosin Hcl (Flomax)0.4 Mg Cap0.4 Mg PO DAILY 07/06/16 Current Medications Medications (Trade) Dose Ordered Sig/Jossue Route Start Time Stop Time Status Last Admin (NS 1000 ml Inj) 1,000 ml @ 100 mls/hr Q10H IV 12/02/16 14:00 12/03/16 00:05 (Tylenol) 650 mg Q4H PRN PO 12/02/16 13:30 1/1/17 19:27 (Zofran Inj) 4 mg Q6H PRN IVP 12/02/16 13:30 (Dulcolax Supp) 10 mg DAILY PRN CA 12/02/16 13:30 (Milk Of Magnesia Liq) 30 ml Q12H PRN PO 12/02/16 13:30 (Heparin Inj) 5,000 units Q12H SQ 12/02/16 14:00 12/03/16 14:56 Naloxone HCl 0.4 mg 0.4 mg UNSCH PRN IV 12/02/16 13:30 (Thiamine Inj/NS Inj) 101 ml @ 101 mls/hr DAILY IV 12/02/16 15:00 12/05/16 14:59 12/03/16 11:52 (NS Flush) 2 ml UNSCH PRN IV FLUSH 12/02/16 16:00 (NS Flush) 2 ml BID IV FLUSH 12/02/16 21:00 12/03/16 09:00 (Vitamin B1) 100 mg DAILY PO 12/03/16 09:00 (Ativan) 1 mg Q4H PRN PO 12/02/16 16:00 12/03/16 04:04 (Ativan Inj) 1 mg Q4H PRN IV PUSH 12/02/16 16:00 12/03/16 08:31 (Ativan) 2 mg Q2H PRN PO 12/02/16 16:00 (Ativan Inj) 2 mg Q2H PRN IV PUSH 12/02/16 16:00 (Ativan Inj) 2 mg Q1H PRN IV PUSH 12/02/16 16:00 (Ativan Inj) 2 mg Q15M PRN IV PUSH 12/02/16 16:00 (Folate) 1 mg DAILY PO 12/03/16 09:00 12/03/16 12:47 (Cymbalta Dr) 80 mg DAILY PO 12/03/16 09:00 12/03/16 12:12 (Flomax) 0.4 mg HS PO 12/02/16 21:00 12/02/16 20:30 (Pepcid) 20 mg BID PO 12/02/16 21:00 12/03/16 12:46 (Vasotec Inj) 1.25 mg Q6H PRN IV 12/03/16 08:00 (Catapres) 0.1 mg Q6H PRN PO 12/03/16 08:00 12/03/16 12:15 (Librium) 50 mg Q8HR PRN PO 12/03/16 08:30 Family History He denies Social History Patient lives with his in [place], he was born and raised in [place], he has 1 daughter, 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 Physical Exam Vital Signs Vital Signs Date Time Temp Pulse Resp B/P Pulse Ox O2 Delivery O2 Flow Rate FiO2 12/03/16 15:45 98.2 97 20 177/112 96 12/03/16 07:24 Nasal Cannula 1.00 I/O 12/02/16 12/02/16 12/03/16 08:00 16:00 00:00 Intake Total 240 ml Balance 240 ml Mental Status Examination Speech: Unremarkable Orientation: x3, Person Memory: Unremarkable Thought Process: Logical Thought Content: Unremarkable Hallucination Type: None Suicidal Ideation: No Previous Suicide Attempts: No Homicidal Ideation: No Previous Homicide Attempts: No Insight: Good Affect: Good Affect if Inappropriate: Flat Mood: Appropriate Motor Activity: Normal gait Assessment & Plan Problem List: (1) Anxiety disorder, unspecified Assessment & Plan: On psychiatric evaluation today the patient does not present any acute, significant, or concerning subjective or objective symptoms of depression, anxiety, silvia and perceptual disturbances. He denies suicidal or homicidal ideation, he denies visual and auditory hallucinations. No alcohol withdrawal symptoms are present or reported. Patient is fully oriented 3, no gross cognitive impairment, delusions, paranoia, fluctuation of consciousness, attention deficit are present at the moment of this evaluation. Patient reports to be fully adhered to current psychotropic regimen for anxiety consisting and Cymbalta 60 mg and clonazepam 0.5 mg when necessary acute anxiety , he reports partial response and no significant side effects. Since the patient complains of shoulder pain and lower back pain, the addition of gabapentin 200 mg 3 times a day to address anxiety and pain could be highly beneficial. He does not need psychiatric admission. He can continue his psychiatric care as an outpatient with Dr. Toro in [place]. Patient was widely oriented about importance of avoiding alcohol use, and engaging in a detox/rehabilitation program. Brief supportive psychotherapy motivation was also provided. Consult appreciated. ICD Code: F41.9 Assessment & Plan Estimated LOS: days Slick Solorzano MD Dec 03, 2016 16:36
[2016-12-03] MEDS: LISINOPRIL 10 MG TAB PO SCH (17:04)
[2016-12-03] MEDS: amLODIPine BESYLATE 5 MG TAB PO SCH (17:04)
--- NOTE | 2016-12-03 17:44 | EKG ---
Date Performed: 12/02/2016 Time Performed: 11:19:12 PTAGE: 61 years EKG: Sinus rhythm POSSIBLE RIGHT VENTRICULAR CONDUCTION DELAY BORDERLINE ECG NO PREVIOUS TRACING DOCTOR: Elsa Kim Interpretating Date/Time 12/03/2016 17:43:44
[2016-12-03] MEDS: GABAPENTIN 100 MG CAP PO SCH (18:11)
[2016-12-03] MEDS: chlordiazePOXIDE 25 MG CAP PO PRN (18:19)
--- NOTE | 2016-12-03 19:38 | MG ---
cc: OBDULIA CASILLAS Lab No: Date: Age: Sex: M Race: ELECTROENCEPHALOGRAM NUMBER [id number] INTRODUCTION A 61-year-old man. Hyperventilation not performed. Depression, anxiety. Falls. Alcohol. Ativan. DESCRIPTION The recording shows a normal symmetric background. Photic stimulation was performed without significant posterior driving. He is snoring and falls asleep with some stage II sleep. No hemisphere asymmetries noted. No epileptiform or seizure activity is seen. The posterior rhythm to 10 Hz is noted which is synchronous and symmetric. IMPRESSION Normal awake and sleep EEG. No evidence for focal or diffuse abnormality. MD ALEKSANDER Khoury/PADMINI /6:53 PM /7:32 PM
[2016-12-03] MEDS: TAMSULOSIN HCL 0.4 MG CAP PO SCH (20:52)
[2016-12-04 00:15] VITALS: BP 171/92; PULSE 74; RESP 21; TEMP 98.9; O2SAT 98
[2016-12-04] MEDS: HEPARIN SODIUM - SQ 10,000 UNITS/ML VIAL SQ SCH (02:11)
[2016-12-04 04:12] VITALS: BP 134/72; PULSE 92; RESP 21; TEMP 97.8; O2SAT 99
[2016-12-04] MEDS: SODIUM CHLOR 0.9% 1000 ML INJ 1,000 ML IV SCH (04:15)
[2016-12-04 07:14] VITALS: BP_SYST 121; BP_SYST 134; BP_SYST 142; BP_DIAS 64; BP_DIAS 72; BP_DIAS 74; PULSE 74; RESP 18; TEMP 98.8; O2SAT 97
[2016-12-04 08:00] VITALS: PULSE 94
[2016-12-04] MEDS: SODIUM CHLORIDE 0.9% FLUSH 5 ML FLUSH IV FLUSH SCH (08:04)
[2016-12-04] MEDS: GABAPENTIN 100 MG CAP PO SCH (08:04)
[2016-12-04] MEDS: FOLIC ACID 1 MG TAB PO SCH (08:04)
[2016-12-04] MEDS: THIAMINE HCL 100 MG TAB PO SCH (08:04)
[2016-12-04] MEDS: chlordiazePOXIDE 25 MG CAP PO PRN (08:04)
[2016-12-04] MEDS: DULoxetine HCl DR 20 MG CAP PO SCH (08:05)
[2016-12-04] MEDS: amLODIPine BESYLATE 5 MG TAB PO SCH (08:05)
[2016-12-04] MEDS: LISINOPRIL 10 MG TAB PO SCH (08:05)
[2016-12-04] MEDS: FAMOTIDINE 20 MG TAB PO SCH (08:05)
[2016-12-04] MEDS: THIAMINE INJ 100 MG in SODIUM CHLORIDE 0.9% INJ 100 ML IV SCH (08:06)
[2016-12-04] MEDS: ACETAMINOPHEN 325 MG TAB PO PRN (08:06)
--- NOTE | 2016-12-04 08:24 | HHI.PR ---
Objective Vital Signs Date Time Temp Pulse Resp B/P Pulse Ox O2 Delivery O2 Flow Rate FiO2 12/04/16 07:14 98.8 74 18 134/72 97 121/64 142/74 12/04/16 04:12 97.8 92 21 134/72 99 12/04/16 00:15 98.9 74 21 171/92 98 12/03/16 23:31 Nasal Cannula 2.00 12/03/16 20:40 108 12/03/16 19:05 98.9 110 18 171/96 98 12/03/16 15:45 98.2 97 20 177/112 96 12/03/16 11:25 96.4 106 187/108 96 I/O 12/03/16 12/03/16 12/03/16 12/04/16 12/04/16 12/04/16 07:00 15:00 23:00 07:00 15:00 23:00 Intake Total 980 ml 1530 ml 300 ml Output Total 0 ml 575 ml Balance 980 ml 1530 ml -275 ml Intake Oral 630 ml IV Total 980 ml 900 ml 300 ml Output Urine Total 575 ml Stool Total 0 ml # Voids 6 Result Diagram: 12/03/16 0402 12/03/16 0402 Other Results MRI NEG X SOME MASTOID FLUID Objective Remarks awake oriented nad hallpike neg bilat Assessment and Plan Assessment and Plan imp stand bp ok psych rec neurontin ok dc neurowise dc etoh fu b12 etc i dw daughter Sudarshan Katz MD Dec 04, 2016 08:24
[2016-12-04] MEDS ORDERED: LISI10TA3 PO (10:37)
[2016-12-04] MEDS ORDERED: CHLO25CA2 PO (10:37)
[2016-12-04] MEDS ORDERED: AMLO5 PO (10:37)
[2016-12-04] MEDS ORDERED: GABA100C4 PO (10:37)
[2016-12-04] MEDS ORDERED: FOLI1TAB4 PO (10:37)
[2016-12-04] MEDS ORDERED: VITA100T2 PO (10:37)
--- NOTE | 2016-12-04 10:48 | HHI.PR ---
Subjective Remarks Follow up for alcoholism, gait instability. Mr. Espino is doing well. No acute concerns. He does not want to go to a alcohol detox program. Daughter at bedside. Daughter is planning to stay until Saturday12/07/2016 in [facility]. Objective Vitals Vital Signs Date Time Temp Pulse Resp B/P Pulse Ox O2 Delivery O2 Flow Rate FiO2 12/04/16 07:14 98.8 74 18 134/72 97 121/64 142/74 12/04/16 04:12 97.8 92 21 134/72 99 12/04/16 00:15 98.9 74 21 171/92 98 12/03/16 23:31 Nasal Cannula 2.00 12/03/16 20:40 108 12/03/16 19:05 98.9 110 18 171/96 98 12/03/16 15:45 98.2 97 20 177/112 96 12/03/16 11:25 96.4 106 187/108 96 I/O 12/03/16 12/03/16 12/03/16 12/04/16 12/04/16 12/04/16 07:00 15:00 23:00 07:00 15:00 23:00 Intake Total 980 ml 1530 ml 300 ml Output Total 0 ml 575 ml Balance 980 ml 1530 ml -275 ml Intake Oral 630 ml IV Total 980 ml 900 ml 300 ml Output Urine Total 575 ml Stool Total 0 ml # Voids 6 Result Diagram: 12/03/16 0402 12/03/16 0402 Imaging Last Impressions Brain MRI 12/03/16 0000 Signed Impressions: Service Date/Time: Saturday, December 03, 2016 08:40 - CONCLUSION: No acute disease. Oskar Bazan MD Head CT 12/02/16 1111 Signed Impressions: Service Date/Time: Friday, December 02, 2016 11:55 - CONCLUSION: No acute disease. Oskar Bazan MD Chest X-Ray 12/02/16 1111 Signed Impressions: Service Date/Time: Friday, December 02, 2016 12:11 - CONCLUSION: Left basilar atelectasis or airspace disease. Oskar Bazan MD Objective Remarks GENERAL: Alert, oriented 3 SKIN: Warm and dry. HEAD: Normocephalic. EYES: No scleral icterus. No injection or drainage. NECK: Supple, trachea midline. No JVD or lymphadenopathy. CARDIOVASCULAR: Regular rate and rhythm without murmurs, gallops, or rubs. RESPIRATORY: Breath sounds equal bilaterally. No accessory muscle use. GASTROINTESTINAL: Abdomen soft, non-tender, nondistended. MUSCULOSKELETAL: No cyanosis, or edema. BACK: Nontender without obvious deformity. No CVA tenderness. Procedures None A/P Assessment and Plan Mr. Espino 61-year-old male with past medical history which includes depression currently on Cymbalta and BPH. Patient suffered a concussion in July 2016 since then it seems the patient has had a progressive decline in cognitive ability and gait. Over the past 2 weeks patient has had increased dizziness lightheadedness forgetfulness bedwetting and difficulty walking as patient has had several falls. - Acute on Chronic encephalopathy Progressive confusion status post concussion 07/26/2016 Concern for hydrocephalus - ataxia, confusion, bedwetting Neuro checks Ammonia level noted to be 35 CT head --> no acute findings. MRI unremarkable for any acute findings. MRI images reviewed by me. No evidence of NPH on MRI. Dr. Katz (Neurology) evaluated patient and recommended alcohol rehab as well as a psychiatry consult. Dr. Katz cleared for discharge on 12/04/2016. - Hypertension - Continue Amlodipine 5mg Qday and Lisinopril 10mg Qday. These can be adjusted by PCP. Blood pressure today much better - within normal range. EtOH abuse patient counseled on risk of EtOH abuse encouraged to abstain Seizure precautions [facility] protocol Folic acid, Thiamine for one month. Vitamin B12 level pending. PCP can follow. Patient's daughter was also advised to call me in a day or two to get pending lab results. Left basilar atelectasis Chest x-ray reviewed by myself as well as Dr. Krause on 12/02/2016 reveals left basilar atelectasis or airspace disease. patient is afebrile white blood cell count 5.3 on admission. Incentive spirometry every hour while awake continue to monitor for signs of progression/infection BPH - continue Tamsulosin. Depression/Anxiety - Psychiatry recommended adding Gabapentin. Full code. DVT prophylaxis with SCDs Discharge patient to home Condition on discharge: Improved Regular Diet as tolerated Ad Milagros activity Rx written: - Amlodipine 5mg Qday - Lisinopril 10mg Qday - Librium 50mg Q8hrs PRN - Folic acid 1mg Qday - Thiamine 100mg Qday - Gabapentin 100mg TID. Follow-up with primary care physician within one week. Total time spent more than 30 minutes. Chris Krause DO Dec 04, 2016 10:48 am
[2016-12-04 10:58] LABS: RAPID PLASMA REAGIN SCREEN NON-REACTIVE (NON-REACTVE)
[2016-12-05 15:06] LABS: ANA SCREEN NEG (NEG)
[2016-12-06 19:56] LABS: VITAMIN B6 8.7 ng/mL (2.1-21.7)
[2017-02-05] MEDS ORDERED: MULT1TAB84 PO (09:44)
[2017-02-05] MEDS ORDERED: MULT-118 PO (09:44)
[2017-02-05] MEDS ORDERED: VITA400C2 PO (09:44)
[2017-02-05] MEDS ORDERED: FLAX10006 PO (09:44)
[2017-02-06] MEDS ORDERED: GABA300C5 PO (06:32)
[2017-02-06] MEDS ORDERED: HYDR-3516 PO (11:04)
== END 2016-12-04 13:13 | disposition home or self-care (01) ==
LOC: NEPC 10:46 → NEDA 13:26 → NEPGCP 14:38
PROVIDERS: ADMIT Hospitalist; ATTEND Hospitalist
DX: F10.229 Alcohol dependence with intoxication, unspecified (principal); G93.40 Encephalopathy, unspecified; R27.0 Ataxia, unspecified; R26.2 Difficulty in walking, not elsewhere classified; R29.6 Repeated falls; J98.11 Atelectasis; F32.9 Major depressive disorder, single episode, unspecified; N40.0 Benign prostatic hyperplasia without lower urinary tract symptoms; F41.9 Anxiety disorder, unspecified; R32 Unspecified urinary incontinence; Y90.8 Blood alcohol level of 240 mg/100 ml or more; S06.0X9A Concussion with loss of consciousness of unspecified duration, initial encounter; W18.30XA Fall on same level, unspecified, initial encounter; Z79.899 Other long term (current) drug therapy; M54.5 Low back pain
CPT/HCPCS: 70450; 70553; 71010; 80048; 80053; 80307; 80320; 81001; 82140; 82550; 82607; 83735; 83921; 84207; 84439; 84443; 84484; 85025; 85652; 86038; 86592; 93005; 94150; 95819; 97163; 99285; A9579; G0378; G8987; G8988; J1644; J2060; J3411; J7030

== ENCOUNTER → 2017-02-06 | Day surgery (SDC) | payer BC ==
[~2017-02-06] VITALS: Ht 170.2 cm; Wt 88.4 kg
[~2017-02-06] MED LIST changes: +ACETAMINOPHEN 1000 MG/100 ML VIAL IV ONE; +ACETAMINOPHEN/HYDROcodone 325 MG/5 MG TAB PO PRN; +BUPIVACAINE HCL PF 0.5% 30 ML VIAL NB ONE; +DEXAMETHASONE SOD PHOS 4 MG/ML VIAL ONE; +DO NOT ADM ANY ANTICOAGULANT DRUGS XX PRN; +DULO1CAP PO; +EPINEPHrine HCL (1:1000) 30 MG/30 ML VIAL ONE; +FAMOTIDINE 20 MG/2 ML VIAL ONE; +FLAX10006 PO; +GABA100C4 PO; +GABA300C5 PO; +HYDR-3516 PO; +INSULIN HUMAN REGULAR 1,000 UNITS/10 ML VIAL SQ PRN; +LACTATED RINGER'S 1000 ML IV SCH; +METOPROLOL TARTRATE 25 MG TAB PO PRN; +MIDAZOLAM HCL 5 MG/5 ML VIAL ONE; +MORPHINE SULFATE 4 MG/ML INJ IV PUSH PRN; +MULT-118 PO; +MULT1TAB84 PO; +ONDANSETRON HCL 4 MG/2 ML VIAL IV PRN; +ONDANSETRON HCL 4 MG/2 ML VIAL IV PUSH ONE; +PHENYLEPH/NS 1000 MCG/10 ML SYR IV ONE; +PROPOFOL 200 MG/20 ML AMP IV ONE; +SODIUM CHLOR 0.9% 1000 ML INJ 1,000 ML IV SCH; +SODIUM CHLORID 0.9% 500 ML IV SCH; +SODIUM CHLORIDE 0.9% FLUSH 5 ML FLUSH IVF PRN; +SODIUM CHLORIDE 0.9% FLUSH 5 ML FLUSH IVF SCH; +TAMS0.4C4 PO; -TAMS0.4C67 PO; +VANCOMYCIN 1,500 MG/NS 500 ML IV ONE; +VERAPAMIL HCL 5 MG/2 ML VIAL ONE; +VITA400C2 PO; +ceFAZolin 2 GM PREMIX 50 ML IV SCH; +ePHEDrine/NS 25 MG/5 ML SYR IV ONE; +fentaNYL CITRATE 250 MCG/5 ML AMP ONE
[2017-02-06 06:33] VITALS: BP 130/78; PULSE 78; RESP 18; TEMP 97.9; O2SAT 95
--- NOTE | 2017-02-06 08:37 | MH ---
cc: EMILIANO,NATHALIA DATE OF ADMISSION: 02/06/2017 DIAGNOSIS Full thickness rotator cuff tear left shoulder. ADDITIONAL DIAGNOSES 1. Biceps tendinopathy. 2. 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 PROPOSED SURGERY Arthroscopic surgery left shoulder with repair of the rotator cuff and probable biceps tenodesis and acromioplasty. PAST MEDICAL HISTORY 1. He has had lower back pain. 2. Anxiety. 3. He has had trigger finger release. MEDICATIONS 1. Klonopin. 2. Tamsulosin. 3. Vitamins and supplements. ALLERGIES KNOWN. PRESENT HISTORY He has problems with both shoulders for over two years and now he is having difficulty doing overhead work. The patient works in [employer] and he is finding it difficult to do this without pain. He saw me for the first time several weeks ago and he had already had MRI scan done and now being brought in to have the surgery. The diagnosis, the treatment, the prognosis and the potential risks, ___ complications and expected results have been discussed with him in detail. He has been advised about slower rehab with these things in terms of being immobilized in an ____ sling for six weeks and then slow range of motion after that. Only limited pendulum and passive flexion exercises while in the sling. He is advised that he will not being any vigorous exercising for about three months and it may take up to six months for him to do any kind of overhead work. The procedure of biceps tenotomy with or without tenodesis has been discussed. Potential risks, hazards and complications including but not limited to delayed healing, non healing, failure or tenodesis, possibility of Yinka arm have all been discussed. Risk of infection, bleeding discussed. Informed consent has been obtained. No guarantees made. PHYSICAL EXAMINATION GENERAL: Reveals a well built and nourished 61-year-old. HEENT: Head normocephalic. Pupils reactive to light. Face symmetrical. HEART: Regular rhythm. No murmur. LUNGS: Clear to auscultation. ABDOMEN: Soft and supple. EXTREMITIES: Left shoulder has terminal restriction of flexion and abduction in the last 20 degrees. And also restriction of both internal and external rotation to a mild degree. Impingement test is equivocal. There is tenderness over the anterior aspect of the shoulder, over the supraspinatus. He has some weakness and pain to external rotation against resistance. IMAGING X-rays essentially unremarkable. MRI scan shows full thickness supraspinatus tear and evidence of biceps tendinopathy and arthritis of the acromioclavicular joint. Informed consent has been obtained. No guarantees made. MD AYESHA Corea/PADMINI /9:43 PM /8:32 AM
[2017-02-06 12:35] VITALS: BP 119/80; PULSE 80; RESP 16; TEMP 97.4; O2SAT 95
--- NOTE | 2017-02-07 10:41 | MP ---
cc: NATHALIA TUCKER DATE OF SURGERY 02/06/2017 PREOPERATIVE DIAGNOSIS 1. Rotator cuff tear supraspinatus 2. Biceps tendinopathy POSTOPERATIVE DIAGNOSIS 1. Rotator cuff tear supraspinatus 2. Biceps tendinopathy OPERATIVE PROCEDURE 1. Arthroscopic surgery left shoulder consisting of rotator cuff repair. 2. Biceps tendinopathy SURGEON Dr. Tucker ANESTHESIA General TECHNIQUE After induction of general anesthesia, the patient placed in left lateral position supported with Biomet hip positioners. The patient was oblique to about 15-20 degrees towards the surgeon, but good padding placed on the upright to prevent any pressure on the skin. Left arm was placed in traction with the active flex positioner in about 25 degrees of abduction and 5-10 degrees of flexion. The left shoulder was then thoroughly prepped with alcohol and ChloraPrep and draped in routine fashion including adherent drapes and Ioban drape on the traction apparatus. Bony prominences were marked. The shoulder joint was entered through the posterior soft spot. Examination of the joint revealed satisfactory appearance of the head of the humerus the glenoid. The biceps tendon had dislocated from the groove and it had partial tears near its attachment. There was a rotator cuff tear near the anterior portion of the supraspinatus to the rotator cuff interval. An anterolateral superior portal was established and a suture lasso was passed through the biceps tendon 1 cm from its insertion and a racking stitches placed. The second racking stitches placed proximal to that. Biceps tenotomy was now carried out with ArthroCare system. The biceps was then pulled through the anterior incision after removing the cannula and flexing the elbow and a #2 FiberWire whipstitch was placed. The cannula was reinserted. The subacromial space was now entered and an acromioplasty was carried out. There was a lot of bursitis and soft tissue that had to be debrided. The rotator cuff tear was quite small and thin in the extreme anterior portion of the supraspinatus. The anterolateral portal was then used to drill a hole through the anterior portion of the footprint with a 7-mm drill to 20 mm. The biceps tendon was then anchored in this hole with the swivel lock suture anchor where the sutures were passed through this swivel lock. The biceps tendon was passed into the hole and the screw tightened getting good fixation. The rotator cuff surgery was now started with debridement of the bone and the footprint. The sutures from the tenodesis were cut because we could not use them for technical reasons. An anchor was then placed just lateral to the articular surface through the middle of the foot (and the to tighter sutures were then passed in mattress fashion and tied. There was no room for any other suture. This suture was then pulled over as an [id number] repair with a 4.5 mL swivel lock. Final appearance looked satisfactory. I tried to get more sutures in the rotator cuff, but there was just not enough room. The sutures were cut, the instrumentation withdrawn. The patient tolerated the procedure well. Transfusions and complications, none. Postoperative condition satisfactory. PROGNOSIS We could only get one anchor and one [id number] anchor to repair the rotator cuff, but that is all the room there is, but the rotator cuff tendon was actually was quite thin anteriorly, so there was no place to get anymore sutures in there. We then did biceps tenodesis. His symptoms were probably significant because of that. The wounds were closed with interrupted 3-0 nylon sutures. Dressings were applied with Xeroform, 4x4s, ABD and Medipore tape. A DonJoy ultra sling applied. The patient transferred recovery room in satisfactory condition. The patient tolerated the procedure well. TRANSFUSIONS AND COMPLICATIONS None POSTOPERATIVE CONDITION Satisfactory MD AYESHA Corea/CAIT /10:22 AM /10:17 AM
== END | disposition home or self-care (01) ==
LOC: HSDC 05:38
PROVIDERS: ATTEND Orthopaedic Surgery
DX: M75.102 Unspecified rotator cuff tear or rupture of left shoulder, not specified as traumatic (principal); M67.814 Other specified disorders of tendon, left shoulder; M19.012 Primary osteoarthritis, left shoulder; F41.9 Anxiety disorder, unspecified
CPT/HCPCS: 01630; 23420; 64415; 94150; C1713; J0131; J0171; J0690; J1100; J2250; J2370; J2405; J3010; J3370; J7040